=== PATIENT | female | born 1970 | race African-American/Black ===

== ENCOUNTER 2017-11-22 13:29 | Inpatient (IN) | payer SELFPAY ==
[~2017-11-22] VITALS: Ht 175.3 cm; Wt 75.7 kg
[2017-11-22] MEDS ORDERED: ACETAMINOPHEN 325MG TABLET PO ONE (14:15)
[2017-11-22] MEDS ORDERED: ONDANSETRON HCL 4MG/2ML VIAL IV ONE (15:15)
[2017-11-22] MEDS ORDERED: SODIUM CHLORIDE 0.9% 1,000 ML IV ONE (15:15)
[2017-11-22] MEDS ORDERED: MORPHINE SULFATE 2 MG/ML CPJ (NOT FOR IM USE) IV ONE (15:15)
[2017-11-22 15:50] LABS: CHLORIDE 98 mEq/L (98-107); HEMATOCRIT. 40.7 % (36.0-48.0); HEMOGLOBIN. 13.4 g/dL (12.0-16.0); INR 1.3; MEAN CORPUSCULAR HEMOGLOBIN 25.5 pg (28.0-32.0); MEAN CORPUSCULAR VOLUME 77.3 fL (81.0-99.0); MEAN PLATELET VOLUME 9.5 fl (7.4-10.4); PLATELET 314 x1000/uL (130-400); PROTHROMBIN TIME 12.7 sec (9.1-11.1); RED BLOOD CELL COUNT 5.27 mill/uL (4.2-5.4); RED CELL DISTRIBUTION WIDTH 14.7 % (11.6-14.6)
[2017-11-22 16:15] LABS: PLATELET ESTIMATE NORMAL
[2017-11-22 16:34] LABS: CLARITY URINE CLOUDY (CLEAR); COLOR URINE DARK YELLOW (YELLOW); KETONES URINE TRACE (NEGATIVE); LEUKOCYTE ESTERASE URINE 2+ (NEGATIVE); NITRITE URINE POSITIVE (NEGATIVE); OCCULT BLOOD URINE 2+ (NEGATIVE); PROTEIN URINE 2+ (NEGATIVE); SPECIFIC GRAVITY URINE 1.033 (1.005-1.030)
[2017-11-22] MEDS ORDERED: METRONIDAZOLE 500 MG PREMIX 100 ML IV ONE (16:45)
[2017-11-22] MEDS ORDERED: PIPERACILLIN/TAZOBACTAM 3.375GM/50ML PREMIX IV ONE (16:45)
[2017-11-22] MEDS ORDERED: PIPERACILLIN/TAZ 3.375G PREMIX 50 ML IV NR (16:54)
[2017-11-22 17:00] LABS: *AMPHETAMINES SCREEN URINE NEGATIVE (NEGATIVE); *BARBITURATES SCREEN URINE NEGATIVE (NEGATIVE); *BENZODIAZEPINES SCREEN URINE NEGATIVE (NEGATIVE); *COCAINE SCREEN URINE NEGATIVE (NEGATIVE); METHADONE URINE SCREEN NEGATIVE (NEGATIVE)
[2017-11-22 17:01] LABS: OPIATES URINE SCREEN NEGATIVE (NEGATIVE); PHENCYCLIDINE URINE SCREEN NEGATIVE (NEGATIVE)
[2017-11-22 17:06] LABS: CANNABINOID URINE SCREEN PRESUMTIVE POSITIVE (NEGATIVE)
[2017-11-22] MEDS ORDERED: IOHEXOL-300 100 ML BOTTLE ONE (17:43)
[2017-11-22] MEDS ORDERED: KCL 20MEQ/100ML PREMIX 100 ML IV ONE (17:45)
[2017-11-22] MEDS ORDERED: DIATR MEGLU/DIATRIZOATE SOLN 120ML ONE (21:20)
[2017-11-22] MEDS ORDERED: DIPHENHYDRAMINE 50MG/ML VIAL IV PRN (22:00)
[2017-11-22] MEDS ORDERED: CLONIDINE 0.1MG TABLET PO PRN (22:00)
[2017-11-22] MEDS ORDERED: POTASSIUM CHLORIDE 20MEQ TABLET SR PO ONE (22:00)
[2017-11-22] MEDS ORDERED: METRONIDAZOLE 500 MG PREMIX 100 ML IV NR (23:04)
[2017-11-23] VITALS (20 sets, daily range): BP systolic 93–115; BP diastolic 41–79
[2017-11-23] MEDS ORDERED: ONDANSETRON HCL 4MG/2ML VIAL IV PRN (01:03)
[2017-11-23] MEDS ORDERED: MAGNESIUM SULFATE 2 GM in DEXTROSE 5% WATER 50 ML IV SCH (02:00)
[2017-11-23] MEDS: PIPERACILLIN/TAZ 3.375G PREMIX 50 ML IV SCH ×3 (02:24→21:32)
[2017-11-23] MEDS: POTASSIUM CHLORIDE INJ 40 MEQ in DEXT 5%/0.9% NACL 1,000 ML IV SCH (02:25)
[2017-11-23] MEDS: METRONIDAZOLE 500 MG PREMIX 100 ML IV SCH ×3 (02:25→21:33)
[2017-11-23] MEDS: MORPHINE SULFATE 4 MG/ML CPJ (NOT FOR IM USE) IV PRN ×2 (03:12→21:32)
[2017-11-23 06:23] LABS: HEMATOCRIT. 34.6 % (36.0-48.0); HEMOGLOBIN. 11.5 g/dL (12.0-16.0); MEAN CORPUSCULAR HEMOGLOBIN 25.8 pg (28.0-32.0); MEAN CORPUSCULAR VOLUME 77.7 fL (81.0-99.0); MEAN PLATELET VOLUME 9.1 fl (7.4-10.4); PLATELET 258 x1000/uL (130-400); RED BLOOD CELL COUNT 4.45 mill/uL (4.2-5.4); RED CELL DISTRIBUTION WIDTH 14.6 % (11.6-14.6)
[2017-11-23 06:41] LABS: CHLORIDE 102 mEq/L (98-107)
[2017-11-23] MEDS ORDERED: POTASSIUM CHLORIDE INJ 40 MEQ in DEXT 5% WATER 500 ML IV NR (11:00)
[2017-11-23] MEDS ORDERED: MIDAZOLAM HCL 2 MG/2 ML VIAL ONE (11:16)
[2017-11-23] MEDS ORDERED: FENTANYL CITRATE/PF 50MCG/ML 2ML VIAL ONE (11:17)
[2017-11-23] MEDS ORDERED: SODIUM BICARBONATE 4% (2.4MEQ) 5ML VIAL IV ONE (11:30)
[2017-11-23] MEDS ORDERED: LIDOCAINE HCL 1% 20ML VIAL (Pyxis) INJ ONE (11:30)
[2017-11-23] MEDS ORDERED: FENTANYL CITRATE/PF 50MCG/ML 2ML VIAL IV SCH (11:30)
[2017-11-23] MEDS ORDERED: MIDAZOLAM HCL 2 MG/2 ML VIAL IV SCH (11:45)
[2017-11-23] MEDS ORDERED: FENTANYL CITRATE/PF 50MCG/ML 2ML VIAL IV ONE (13:15)
[2017-11-23] MEDS: ACETAMINOPHEN 325MG TABLET PO PRN (16:16)
[2017-11-23 20:30] LABS: PLATELET ESTIMATE NORMAL
[2017-11-24] VITALS: BP 104/41
[2017-11-24] MEDS: PIPERACILLIN/TAZ 3.375G PREMIX 50 ML IV SCH ×3 (01:35→17:37)
[2017-11-24] MEDS: POTASSIUM CHLORIDE INJ 40 MEQ in DEXT 5%/0.9% NACL 1,000 ML IV SCH ×2 (03:01→07:43)
[2017-11-24 04:00] VITALS: BP 117/59
[2017-11-24] MEDS: METRONIDAZOLE 500 MG PREMIX 100 ML IV SCH ×3 (06:01→23:13)
[2017-11-24 08:00] VITALS: BP 111/37
[2017-11-24 10:08] LABS: BASOPHILS % 0.1 % (0.0-2.0); EOSINOPHILS % 0.6 % (0.0-5.0); HEMATOCRIT. 33.5 % (36.0-48.0); LYMPHOCYTES % 8.4 % (20.0-50.0); MEAN CORPUSCULAR HEMOGLOBIN 25.4 pg (28.0-32.0); MEAN CORPUSCULAR VOLUME 77.5 fL (81.0-99.0); MEAN PLATELET VOLUME 9.1 fl (7.4-10.4); MONOCYTES % 7.5 % (2.0-8.0); NEUTROPHILS % 83.4 % (40.0-76.0); PLATELET 277 x1000/uL (130-400); RED BLOOD CELL COUNT 4.32 mill/uL (4.2-5.4); RED CELL DISTRIBUTION WIDTH 14.7 % (11.6-14.6)
[2017-11-24 10:24] LABS: CHLORIDE 105 mEq/L (98-107)
[2017-11-24 12:00] VITALS: BP 104/47
[2017-11-24] MEDS: ACETAMINOPHEN 325MG TABLET PO PRN (15:26)
[2017-11-24 16:00] VITALS: BP 111/64
[2017-11-24 20:00] VITALS: BP 110/55
[2017-11-25] VITALS: BP 111/61
[2017-11-25] MEDS: ACETAMINOPHEN 325MG TABLET PO PRN (00:43)
[2017-11-25] MEDS: PIPERACILLIN/TAZ 3.375G PREMIX 50 ML IV SCH ×3 (03:49→17:40)
[2017-11-25 04:00] VITALS: BP 104/56
[2017-11-25] MEDS: METRONIDAZOLE 500 MG PREMIX 100 ML IV SCH ×3 (06:08→22:12)
[2017-11-25 08:00] VITALS: BP 121/40
[2017-11-25] MEDS ORDERED: POTASSIUM CHLORIDE 20MEQ TABLET SR PO SCH (08:30)
[2017-11-25 12:00] VITALS: BP 108/52
[2017-11-25] MEDS: HYDROCODONE/ACETAMINOPHEN 5/325MG TABLET PO PRN (14:51)
[2017-11-25 16:00] VITALS: BP 112/49
[2017-11-25 20:00] VITALS: BP 117/46
[2017-11-26] VITALS: BP 116/52
[2017-11-26] MEDS: PIPERACILLIN/TAZ 3.375G PREMIX 50 ML IV SCH ×3 (02:20→20:25)
[2017-11-26 04:00] VITALS: BP 118/59
[2017-11-26] MEDS: METRONIDAZOLE 500 MG PREMIX 100 ML IV SCH ×3 (05:11→22:51)
[2017-11-26] MEDS ORDERED: IOPAMIDOL 20 ML VIAL IT ONE ×2 (08:06→08:11)
[2017-11-26 10:03] LABS: BASOPHILS % 0.5 % (0.0-2.0); EOSINOPHILS % 2.1 % (0.0-5.0); HEMATOCRIT. 38.5 % (36.0-48.0); HEMOGLOBIN. 12.9 g/dL (12.0-16.0); LYMPHOCYTES % 27.2 % (20.0-50.0); MEAN CORPUSCULAR VOLUME 77.5 fL (81.0-99.0); MEAN PLATELET VOLUME 8.7 fl (7.4-10.4); MONOCYTES % 9.1 % (2.0-8.0); NEUTROPHILS % 61.1 % (40.0-76.0); PLATELET 408 x1000/uL (130-400); RED BLOOD CELL COUNT 4.97 mill/uL (4.2-5.4); RED CELL DISTRIBUTION WIDTH 15.1 % (11.6-14.6)
[2017-11-26 10:17] LABS: CHLORIDE 102 mEq/L (98-107)
[2017-11-26] MEDS: ACETAMINOPHEN 325MG TABLET PO PRN (15:12)
[2017-11-26] MEDS: POTASSIUM CHLORIDE 20MEQ TABLET SR PO SCH ×2 (18:03→20:25)
[2017-11-26 20:00] VITALS: BP 112/50
[2017-11-26] MEDS: HYDROCODONE/ACETAMINOPHEN 5/325MG TABLET PO PRN (20:27)
[2017-11-27] VITALS: BP 110/51
[2017-11-27] MEDS: POTASSIUM CHLORIDE 20MEQ TABLET SR PO SCH (00:01)
[2017-11-27] MEDS: PIPERACILLIN/TAZ 3.375G PREMIX 50 ML IV SCH ×3 (03:30→21:46)
[2017-11-27 04:00] VITALS: BP 112/50
[2017-11-27] MEDS: METRONIDAZOLE 500 MG PREMIX 100 ML IV SCH ×3 (05:06→21:46)
[2017-11-27 20:00] VITALS: BP 110/53
[2017-11-28] VITALS: BP 99/57
[2017-11-28] MEDS: PIPERACILLIN/TAZ 3.375G PREMIX 50 ML IV SCH ×2 (01:08→10:34)
[2017-11-28 04:00] VITALS: BP 111/54
[2017-11-28 04:14] LABS: CHLAMYDIA TRACHOMATIS NAA Negative (Negative); NEISSERIA GONORRHOEAE NAA Negative (Negative)
[2017-11-28] MEDS: METRONIDAZOLE 500 MG PREMIX 100 ML IV SCH (06:36)
[2017-11-28 08:00] VITALS: BP 114/67
[2017-11-28 12:00] VITALS: BP 106/42
[2017-11-28] MEDS ORDERED: METRONIDAZOLE 500MG TABLET PO SCH (14:00)
[2017-11-28 16:00] VITALS: BP 107/58
[2017-11-28 16:34] VITALS: BP 107/58
== END 2017-11-28 17:15 | disposition home or self-care (01) | DRG 710 ==
LOC: ER 13:29 → 6EST 19:02 → EDBEDREQ 22:01 → ENRESERV 22:40
PROVIDERS: ADMIT Internal Medicine; ATTEND Internal Medicine
PROC: 0W9J3ZX Drainage of Pelvic Cavity, Percutaneous Approach, Diagnostic (ICD-10-PCS; principal; 2017-11-23)
DX: A41.9 Sepsis, unspecified organism (principal); K35.2 Acute appendicitis with generalized peritonitis; K63.0 Abscess of intestine; D25.9 Leiomyoma of uterus, unspecified; E87.6 Hypokalemia; F17.200 Nicotine dependence, unspecified, uncomplicated; K59.00 Constipation, unspecified; N39.0 Urinary tract infection, site not specified; N73.9 Female pelvic inflammatory disease, unspecified; Z98.891 History of uterine scar from previous surgery
CPT/HCPCS: 36415; 74176; 74177; 76830; 76856; 77012; 80048; 80051; 80053; 80305; 81003; 81025; 83605; 83690; 83735; 85025; 85610; 87040; 87070; 87075; 87076; 87077; 87102; 87186; 87205; 87491; 87591; 93005; 96361; 96365; 96366; 99285; C1769; C1893; J1200; J2250; J2270; J2405; J2543; J3010; J3475; J3480; J3490; J7030; J7040; J7042; J7060; Q9963; Q9966; Q9967

== ENCOUNTER → 2017-12-11 | Outpatient (CLI) | payer MEDICAID ==
[~2017-12-11] MED LIST: IOHEXOL-300 50 ML BOTTLE IV ONE
== END | disposition home or self-care (01) ==
LOC: CT 08:40
PROVIDERS: ATTEND Surgery
DX: K65.1 Peritoneal abscess (principal)
CPT/HCPCS: 74176; Q9967